=== PATIENT | female | born 1960 | race Caucasian/White ===

== ENCOUNTER 2024-05-13 17:07 | Emergency (ER) | payer SELFPAY ==
[2024-05-13 17:17] VITALS: BP 117/76
[2024-05-13 18:35] VITALS: BP 122/81
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
== END 2024-05-13 20:25 | disposition home or self-care (01) ==
LOC: EMR 17:07
PROVIDERS: EMERGENCY PHYSICIAN Student in an Organized Health Care Education/Training Program
DX: S09.90XA Unspecified injury of head, initial encounter (principal); S00.83XA Contusion of other part of head, initial encounter; Y35.813A Legal intervention involving manhandling, suspect injured, initial encounter; Z65.3 Problems related to other legal circumstances
CPT/HCPCS: 99284; 70450; 73130